=== PATIENT | female | born 1965 | race Caucasian/White ===

== ENCOUNTER 2018-02-22 04:51 | Emergency (ER) | payer OTHER, SELFPAY ==
[2018-02-22 05:05] VITALS: BP 143/78; PULSE 67; RESP 26; TEMP 36.6; O2SAT 99; BMI 33.3
[2018-02-22] MEDS: SODIUM CHLORIDE 0.9% 1,000 ML 1000 ML IV (05:08)
[2018-02-22] MEDS: KETOROLAC 60 MG/2 ML VIAL 30 MG IV (05:08)
[2018-02-22] MEDS: ONDANSETRON 4 MG/2 ML INJ IV (05:08)
--- NOTE | 2018-02-22 05:08 | ED_ITS ---
HPI - Abdominal Pain General Chief Complaint: Abdominal Pain Stated Complaint: SEVERE ABDOMINAL PAIN Time Seen by Provider: 02/22/18 04:59 Source: patient, family and RN notes reviewed Mode of arrival: ambulatory History of Present Illness HPI narrative: Patient is a 52-year-old female who presents with mid lower abdominal pain which started suddenly around 1:30 AM this morning. It has been ongoing. She has vomited 3 times no diarrhea if she feels like she might have too. She frequently wakes up with the need to have a bowel movement she has some discomfort she has a bowel movement and then it has resolved. However today she did not have a bowel movement is a does not feel like she needs to. She vomited as the pain intensified. She denies any flank pain she does have a history of kidney stones this does not feel like that. She denies any painful or frequent urination no fever. MD complaint: abdominal pain Quality: stabbing Radiation: suprapubic Related Data Home Medications Medication Instructions Recorded Confirmed acyclovir [Zovirax] #0 07/31/17 Previous Rx's Medication Instructions Recorded spironolactone 25 mg PO QDAY #90 tab 02/09/17 albuterol sulfate [Ventolin HFA] 2 puff INH Q4HP PRN #1 ea 05/22/17 amlodipine 10 mg PO QDAY #90 tab 12/28/17 meloxicam [Mobic] 15 mg PO AMCC #30 tab 01/20/18 Allergies Allergy/AdvReac Type Severity Reaction Status Date / Time No Allergy Information Allergy Verified 02/22/18 05:18 Available Review of Systems Review of Systems All systems reviewed & are unremarkable except as noted in HPI and below Constitutional Denies chills, Reports fatigue, Denies fever(s), Denies headache(s), Denies lethargy and Denies weakness ENT Ears, Nose, Mouth, and Throat: Denies headache(s) Cardiovascular Denies chest pain, Denies irregular heart rhythm, Denies lightheadedness, Denies palpitations, Denies dyspnea, Denies dyspnea on exertion and Denies orthopnea Respiratory Denies cough, Denies dyspnea, Denies dyspnea on exertion and Denies wheezing Gastrointestinal Gastrointestinal: Reports system reviewed and no additional complaints, except as docu Genitourinary Denies hematuria, Denies flank pain, Denies urinary incontinence and Denies urinary urgency Integumentary/Breasts Denies pruritus, Denies erythema, Denies rash and Denies wounds Neurologic Denies headache(s), Denies lack of coordination and Denies weakness Endocrine Reports fatigue and Denies palpitations Allergic/Immunologic Denies wheezing [facility] Surgical History Status post reduction mammoplasty Family History Child Age: 25 Hypothyroidism Father Age: 79 Diabetes mellitus Mother Age: 75 High cholesterol Exam Const General: cooperative, acute distress (Overall weak) and anxious Orientation: alert, awake and oriented x3 HENMT Head: normocephalic and atraumatic Mouth: moist mucous membranes Resp Effort & Inspection: normal respiratory effort, able to speak in complete sentences, no respiratory distress and no use of accessory muscles Auscultation: clear to auscultation bilaterally, no rales, no rhonchi and no wheezes Cardio Rate: regular rate Rhythm: regular rhythm Heart Sounds: no click, no gallops, no murmurs and no rubs Pulses: normal peripheral pulses GI Inspection: normal to inspection Palpation: soft, No pulsatile mass and tender (Suprapubic no right lower quadrant pain no left lower quadrant pain) Percussion: normal to percussion Skin General: no rashes or lesions noted, No jaundice and No petechiae Neuro General: alert, oriented x3, gait normal and no focal motor deficits Cranial Nerves: CN's II-XI intact bilaterally Speech: speech normal Motor: strength 5/5 throughout Sensory Exam: no sensory deficits noted Extrem General: full ROM, no clubbing, cyanosis or edema, no pedal edema and no calf tenderness MDM - Abdominal Pain MDM Narrative Medical decision making narrative: Patient had sudden onset of mid suprapubic pain nonradiating. She denies any painful frequent urination. No flank pain. She vomited but she thought only due to the pain. Pain improved with Toradol IV fluids IUD appears in place. At this time no free air while blood work within normal limits abdomen is soft and nontender. Discussed with both patient and if pain worsens may require further imaging but not indicated at this time. Differential Diagnosis Differential diagnosis: Likely abdominal pain, acute appendicitis, calculus of kidney, constipation and diverticulitis Medical Records Attestation: I reviewed the patient's medical records. Lab Data Attestation: I reviewed the patient's lab results. Result diagrams: 02/22/18 05:00 02/22/18 05:00 Lab Results 02/22/18 02/22/18 02/22/18 Range/Units 05:00 05:00 05:20 WBC 5.5 (4.5-11.0) X10^3/uL RBC 4.66 (4.0-5.2) X10^6/uL Hgb 13.7 (12.0-16.0) g/dL Hct 39.5 (36-46) % MCV 84.8 (80-100) fL MCH 29.5 (26-34) PG MCHC 34.8 (30-36) % RDW 13.2 (11.6-14.8) % Plt Count 232 (150-400) X10^3/uL Neut % (Auto) 74.1 (50-75) % Lymph % (Auto) 15.9 L (25-40) % Pine % (Auto) 8.2 (3-14) % Eos % (Auto) 1.0 L (2-4) % Baso % (Auto) 0.8 (0-2) % Neut # (Auto) 4100 (7251-8001) /uL Sodium 140 (137-145) mmol/L Potassium 3.3 L (3.4-5.1) mmol/L Chloride 105.0 (98-107) mmol/L Carbon Dioxide 20.0 L (22-32) mmol/L BUN 11.0 (7-17) mg/dL Creatinine 0.70 (0.52-1.04) mg/dL Estimated GFR > 60.0 (>60) mL/min BUN/Creatinine Ratio 15.7 (6-22) Glucose 150 H (70-100) mg/dL Calcium 9.7 (8.4-10.2) mg/dL Total Bilirubin 0.7 (0.2-1.3) mg/dL AST 37 H (14-36) IU/L ALT 49 (9-52) IU/L Alkaline Phosphatase 79 (38-126) U/L Total Protein 7.5 (6.3-8.2) g/dL Albumin 4.6 (3.5-5.0) g/dL Globulin 2.9 (1.7-4.1) g/dL Albumin/Globulin Ratio 1.6 (1.0-2.8) Lipase 304 H (23-300) U/L Urine RBC 1-5/hpf (0-5/HPF) Ur Squamous Epith Cells 0-1 /hpf Urine Bacteria Occasional (0-1) (None) Ur Culture Indicated? Cult not indicated Micro UA Comment Not Reportable Imaging Data Abdominal x-ray: Attestation: I personally reviewed and interpreted this imaging study as follows: My impression: No free air IUD in place negative x-ray Course Orders Ordered: ED Orders 02/22/18 05:00 Complete Blood Count AUTO DIFF Stat Comprehensive Metabolic Panel Stat Lipase Stat 02/22/18 05:20 Urine Microscopic Stat 02/22/18 05:56 XR abdomen min 2V Stat Sodium Chloride (Normal Saline 0.9%) 1,000 mls @ 1,000 mls/hr IV CONT ANALIA Last Infusion: 02/22/18 06:01 Dose: 0 mls/hr Admin: 02/22/18 05:08 Dose: 1,000 mls/hr Discontinued Medications Ketorolac Tromethamine (Toradol) 30 mg IV NOW ONE Stop: 02/22/18 05:04 Last Admin: 02/22/18 05:08 Dose: 30 mg Ondansetron HCl (Zofran) 4 mg IV NOW ONE Stop: 02/22/18 05:04 Last Admin: 02/22/18 05:08 Dose: 4 mg Reevaluation(s) Reevaluation #1: The pain is much better. She says usually she wakes up with severe pain and has had diarrhea however at this time she did not have diarrhea. No flank pain or radiation of pain similar to previous kidney stones. No painful or frequent urination. She does have an IUD he says hours check last week thought it was in place. No vaginal bleeding. Will check abdominal x-ray 2 sure of IUD is in place. Abdomen is reexamined and is nontender soft no guarding no rebound Time: 06:00 Last Vital Signs Temp 97.8 F 02/22/18 05:05 Pulse 67 02/22/18 05:05 Resp 26 H 02/22/18 05:05 BP 143/78 H 02/22/18 05:05 Pulse Ox 99 02/22/18 05:05 Discharge Plan Departure Patient Disposition: Home, Self-Care Clinical Impression: Abdominal pain Discharge Date/Time: 02/22/18 06:24 Instructions: DI for Abdominal Pain-Adult Activity Restrictions/Additional Instructions: *You have been diagnosed with lower abdominal pain *What to do: Blood work and x-ray are within normal limits. You do have a small amount of blood in urine but no other symptoms of UTI or kidney stone. *Take medications as directed *Follow up with your primary care provider in 2-3 days *Return to ER if you should have worsening abdominal pain, fever persistent nausea or vomiting or any new, worsening or concerning symptoms Prescriptions: No Action spironolactone 25 MG tablet 25 mg PO QDAY Qty: 90 RF: 3 albuterol sulfate [Ventolin HFA] 90 MCG/PUFF HFA aerosol inhaler 2 puff INH Q4HP PRNQty: 1 RF: 0 acyclovir [Zovirax] 200 MG capsule Qty: 0 RF: 0 amlodipine 10 MG tablet 10 mg PO QDAY Qty: 90 RF: 0 meloxicam [Mobic] 15 MG tablet 15 mg PO AMCC Qty: 30 RF: 0 Referrals: Olesya Batista DO [Primary Care Provider] -
[2018-02-22 05:13] LABS: Add Manual Diff / Slide Review NO; Basophils Percent Auto 0.8 % (0-2); Hematocrit 39.5 % (36-46); Hemoglobin 13.7 g/dL (12.0-16.0); Lymphocytes Percent Auto 15.9 % (25-40); Mean Corpuscular HGB Conc 34.8 % (30-36); Mean Corpuscular Hemoglobin 29.5 PG (26-34); Mean Corpuscular Volume 84.8 fL (80-100); Monocytes Percent Auto 8.2 % (3-14); Neutrophils Absolute Auto 4100 /uL (3000-5900); Neutrophils Percent Auto 74.1 % (50-75); Platelet Count 232 X10^3/uL (150-400); Red Blood Cell Count 4.66 X10^6/uL (4.0-5.2); Red Cell Distribution Width 13.2 % (11.6-14.8); White Blood Cell Count 5.5 X10^3/uL (4.5-11.0)
[2018-02-22 05:23] LABS: Alanine Aminotransferase 49 IU/L (9-52); Albumin 4.6 g/dL (3.5-5.0); Albumin Globulin Ratio 1.6 (1.0-2.8); Alkaline Phosphatase 79 U/L (38-126); Aspartate Aminotransferase 37 IU/L (14-36); BUN Creatinine Ratio 15.7 (6-22); Bilirubin Total 0.7 mg/dL (0.2-1.3); Calcium 9.7 mg/dL (8.4-10.2); Estimated Glomerular Filt Rate > 60.0 mL/min (>60); Globulin 2.9 g/dL (1.7-4.1); Glucose 150 mg/dL (70-100); HEMOLYSIS < 15 (0-50); Lipase 304 U/L (23-300); Potassium 3.3 mmol/L (3.4-5.1); Sodium 140 mmol/L (137-145); Total Protein 7.5 g/dL (6.3-8.2)
[2018-02-22 05:49] LABS: Bacteria Urine Occasional (0-1); Culture Indicated Urine Cult Not Indicated; RBC Urine 1-5/HPF (0-5/HPF); Squamous Epithelial Cell Urine 0-1 /HPF
--- NOTE | 2018-02-22 05:56 | DI.RAD.S_ITS ---
PROCEDURE: XR ABDOMEN MIN 2V INDICATIONS: IUD check, severe lower ab pain TECHNIQUE: 2 views of the abdomen were acquired. COMPARISON: None. FINDINGS: Surgical changes and devices: IUD is present in the mid pelvis.. Bowel: No pneumoperitoneum, noting the right hemidiaphragm is not completely included on the upright view. The bowel gas pattern is normal. Soft tissues: No masses; visualized solid organ contours appear normal in size. No suspicious abdominal calcifications. Bones: No suspicious bony abnormalities. IMPRESSION: 1. Normal bowel pattern. No evidence of free air although upright view does not completely include the diaphragm. 2. IUD is centered within the pelvis. Exact location would be best evaluated by pelvic ultrasound imaging if clinically indicated. Note: The findings are concurrent with the preliminary reading Dictated by: Manan Waters M.D. on 02/22/2018 at 7:58 Approved by: Manan Waters M.D. on 02/22/2018 at 8:01
[2018-02-22 06:21] VITALS: BP 117/61; PULSE 60; RESP 16; TEMP 36.7; O2SAT 95
== END 2018-02-22 06:24 | disposition home or self-care (01) ==
PROVIDERS: Emergency Provider Emergency Medicine; PCP Family Medicine
DX: R10.9 Unspecified abdominal pain (principal)
CPT/HCPCS: 36591; 74019; 80053; 81003; 81015; 81025; 83690; 85025; 96361; 96374; 96375; 99283; 99284; J1885; J2405

== ENCOUNTER → 2021-11-15 12:40 | Outpatient (CLI) | payer OTHER, SELFPAY ==
[2021-11-18 19:55] LABS: Fecal Immunochemical Test Negative (Negative)
== END ==
PROVIDERS: PCP Family Medicine; Referring Provider Family Medicine; Visit Provider Family Medicine
DX: Z12.11 Encounter for screening for malignant neoplasm of colon (principal)
CPT/HCPCS: 82274

== ENCOUNTER 2024-10-04 17:15 | Emergency (ER) | payer OTHER, SELFPAY ==
[2024-10-04 17:19] VITALS: BP 126/64; PULSE 106; RESP 22; TEMP 36.9; O2SAT 97; BMI 33.3
--- NOTE | 2024-10-04 19:31 | ED_ITS ---
HPI - Abdominal Pain General Chief Complaint: Abdominal Pain Stated Complaint: unable to urinate Time Seen by Provider: 10/04/24 19:25 Source: patient Mode of arrival: Ambulatory History of Present Illness HPI narrative: 59-year-old female with history of knee replacement surgery 6 days ago presents by private vehicle from home for constipation. No bowel movements since her surgery last week. Has hydromorphone and oxycodone on medication list. Took laxatives today without successful bowel movement and she became concerned that she may have a blockage. Related Data Home Medications Medication Instructions Recorded Confirmed acyclovir 200 mg capsule (Zovirax) ##0 07/31/17 11/29/21 Previous Rx's Medication Instructions Recorded epinephrine 0.3 mg/0.3 mL 0.3 mg (0.3 mL) IM ONCE 10/18/20 injection, auto-injector (EpiPen anaphylaxis, severe allergic 2-Patrice) reaction #2 ea amlodipine 10 mg tablet 10 mg PO DAILY #30 tabs 07/13/23 spironolactone 25 mg tablet 25 mg PO DAILY #30 tabs 07/13/23 Allergies Allergy/AdvReac Type Severity Reaction Status Date / Time lisinopril Allergy Verified 10/04/24 17:19 Patient History Medical History Prediabetes Osteoarthritis Seasonal allergies (~1991) Migraines (~1984) Herpes (~1979) Anemia Kidney stones (~1997) Hematuria Hypertension (~1998) Surgical History Anesthesia Uterine polyp (~10/2015) Status post reduction mammoplasty (~09/1988) Family History Child Age: 32 Hypothyroidism Father Age: 86 Diabetes mellitus Mother Age: 82 High cholesterol Social History marital status: number of children: 1 household members: family lives independently: Yes occupational status: employed Smoking Status: Never smoker alcohol intake: current (rare/social) substance use type: does not use Smoking Status: Never smoker Exam Initial Vital Signs Initial Vital Signs: Vital Signs Temperature 98.5 F 10/04/24 17:19 Pulse Rate 106 H 10/04/24 17:19 Respiratory Rate 22 10/04/24 17:19 Blood Pressure 126/64 10/04/24 17:19 Pulse Oximetry 97 10/04/24 17:19 Oxygen Delivery Method Room Air 10/04/24 17:19 Const: Awake, alert, no acute distress, nontoxic appearing Cardiac: regular rate, regular rhythm RESP: unlabored, conversational without dyspnea GI: Soft, generalized tenderness to deep palpation without rebound or guarding Skin: Warm, Dry, intact, no rashes Neuro: AO x3, CN II-XII grossly intact, moves all extremities Course Orders Ordered: ED Orders 10/04/24 20:36 XR abdomen min 2V Stat Discontinued Medications Glycerin (Glycerin Supp Adult 1 Supp) 1 each [place] NOW ONE Stop: 10/04/24 20:20 Last Admin: 10/04/24 20:44 Dose: 1 each Documented By: [place] Lactulose (Lactulose 20 Gm/30 Ml Solution) 20 gm PO NOW ONE Stop: 10/04/24 20:20 Last Admin: 10/04/24 20:24 Dose: 20 gm Documented By: [place] Polyethylene Glycol/Electrolytes ([id number]/Sod Sulf,Bicarb,Cl/Kcl 4,000 Ml Solution) 4,000 ml PO NOW ONE Stop: 10/04/24 21:20 Last Admin: 10/04/24 21:37 Dose: 4,000 ml Documented By: [place] Vital Signs Vital signs: Vital Signs - 8 hr 10/04/24 17:19 Temperature 98.5 F Pulse Rate 106 H Respiratory Rate 22 Blood Pressure 126/64 Pulse Oximetry 97 Oxygen Delivery Method Room Air MDM - Abdominal Pain Differential Diagnosis Differential diagnosis: Likely abdominal pain, constipation and gastroenteritis Imaging Data Abdominal x-ray: Radiologist's Impression: PROCEDURE: XR ABDOMEN MIN 2V INDICATIONS: constipation x 1 wk TECHNIQUE: 2 views of the abdomen were acquired. COMPARISON: None. FINDINGS: Surgical changes and devices: None. Bowel: No pneumoperitoneum. The bowel gas pattern is normal. There is a mild volume of stool seen within the colon. Soft tissues: No masses; visualized solid organ contours appear normal in size. There is an 11 mm ovoid lesion seen involving the right mid abdomen. Bones: No suspicious bony abnormalities. Age-appropriate bony degenerative changes are seen. Mild dextroconvex scoliotic curvature is seen. IMPRESSION: A mild volume of stool is seen within the colon. There is an 11 mm right-sided ovoid calcification seen. Please consider a gallstone versus a right-sided kidney stone. Dictated by: Esdras Carbajal M.D. on 10/04/2024 at 20:22 Approved by: Esdras Carbajal M.D. on 10/04/2024 at 20:23 [facility] Narrative Medical decision making narrative: Patient with postoperative constipation. She was on narcotics and states that until today she had not been on a regular stool softener. Abdomen soft, nondistended. X-ray shows no sign of obstruction. Patient given oral laxative and suppository. Subsequently had bowel movement in ED and reported feeling improved. Given GoLytely for continued home bowel regimen. Counseled on using stool softeners when narcotic pain medications are being taken. Discharge Plan Departure Patient Disposition: Home Clinical Impression: Constipation Instructions: DI for Constipation Activity Restrictions/Additional Instructions: Your x-ray today did not show any signs of obstruction or blockage. Drink the GoLYTELY solution for constipation. Drink 8 oz every 2-3 hours until you have a bowel movement. In the future if you take a narcotic pain medication you should take a stool softener concurrently. Follow up as needed with your primary care doctor and your orthopedic surgeon. Prescriptions: No Action acyclovir [Zovirax] 200 MG capsule Qty: 0 epinephrine [EpiPen 2-Patrice] 0.3 mg/0.3 mL auto-injector 0.3 mg IM ONCE Qty: 2 1RF amlodipine 10 mg tablet 10 mg PO DAILY Qty: 30 0RF Rx Instructions: Needs to establish care with new PCP spironolactone 25 mg tablet 25 mg PO DAILY Qty: 30 0RF Rx Instructions: Needs to establish care with new PCP Referrals: Olesya Batista DO [Primary Care Provider] - Stand Alone Forms: Patient Portal/API/Survey
[2024-10-04] MEDS: LACTULOSE 20 GM/30 ML SOLUTION PO (20:24)
--- NOTE | 2024-10-04 20:36 | DI.RAD.S_ITS ---
PROCEDURE: XR ABDOMEN MIN 2V INDICATIONS: constipation x 1 wk TECHNIQUE: 2 views of the abdomen were acquired. COMPARISON: None. FINDINGS: Surgical changes and devices: None. Bowel: No pneumoperitoneum. The bowel gas pattern is normal. There is a mild volume of stool seen within the colon. Soft tissues: No masses; visualized solid organ contours appear normal in size. There is an 11 mm ovoid lesion seen involving the right mid abdomen. Bones: No suspicious bony abnormalities. Age-appropriate bony degenerative changes are seen. Mild dextroconvex scoliotic curvature is seen. IMPRESSION: A mild volume of stool is seen within the colon. There is an 11 mm right-sided ovoid calcification seen. Please consider a gallstone versus a right-sided kidney stone. Dictated by: Esdras Carbajal M.D. on 10/04/2024 at 20:22 Approved by: Esdras Carbajal M.D. on 10/04/2024 at 20:23
[2024-10-04] MEDS: GLYCERIN SUPP ADULT 1 SUPP 1 EACH PR (20:44)
[2024-10-04] MEDS: PEG3350/SOD SULF,BICARB,CL/KCL 4,000 ML SOLUTION 4000 ML PO (21:37)
== END 2024-10-04 22:42 | disposition home or self-care (01) ==
PROVIDERS: Emergency Provider Emergency Medicine; PCP Family Medicine
DX: K59.00 Constipation, unspecified (principal)
CPT/HCPCS: 74019; 99283